=== PATIENT | female | born 1980 | race Caucasian/White ===

== ENCOUNTER 2019-09-12 10:30 | Outpatient (CLI) | payer MEDICAID, SELFPAY ==
[~2019-09-12 10:30] MED LIST: ALBU-136 IH; LEVO0.124 PO
== END 2019-09-12 17:15 | disposition home or self-care (01) ==
LOC: MLB 10:30
PROVIDERS: ATTEND Obstetrics & Gynecology
DX: Z11.59 Encounter for screening for other viral diseases (principal)
CPT/HCPCS: U0003-CS

== ENCOUNTER 2019-09-19 05:06 | Inpatient (IN) | payer MEDICAID, SELFPAY ==
[~2019-09-19] VITALS: Ht 149.9 cm; Wt 56.2 kg
[2019-09-19] MEDS ORDERED: LACTATED RINGERS 1,000 ML IV SCH (05:45)
[2019-09-19 06:23] VITALS: BP 117/70
[2019-09-19] MEDS ORDERED: CITRIC ACID/SODIUM CITRATE 30 ML UDC PO SCH (06:30)
[2019-09-19 06:39] LABS: BASOPHILS % (AUTO) 0.5 % (0.0-2.0); EOSINOPHILS # (AUTO) 0.1 K/uL (0-0.4); EOSINOPHILS % (AUTO) 1.3 % (0.0-4.0); HEMATOCRIT 40.6 % (36-48); HEMOGLOBIN 13.8 g/dL (12.0-16.0); LYMPHOCYTES # (AUTO) 1.1 K/uL (2.5-16.5); LYMPHOCYTES % (AUTO) 17.4 % (20.5-51.1); MEAN CORPUSCULAR HEMOGLOBIN 33 pg (27-31); MEAN CORPUSCULAR HGB CONC 34 g/dL (33-37); MEAN CORPUSCULAR VOLUME 97.1 fL (80-94); MONOCYTES # (AUTO) 0.4 K/uL (0.8-1.0); MONOCYTES % (AUTO) 6.4 % (1.7-9.3); NEUTROPHILS # (AUTO) 4.8 K/uL (1.8-7.7); NEUTROPHILS % (AUTO) 74.4 % (42.2-75.2); PLATELET COUNT (AUTO) 140 K/uL (140-450); RED BLOOD CELL COUNT(AUTO) 4.18 MIL/uL (4.20-5.40); RED CELL DISTRIBUTION WIDTH 14.4 % (11.6-13.7); WHITE BLOOD COUNT (AUTO) 6.4 K/uL (4.8-10.8)
[2019-09-19 06:39] LABS: APPEARANCE,URINE CLEAR (CLEAR); BILIRUBIN,URINE NEGATIVE (NEGATIVE); BLOOD, URINE TRACE-I (NEGATIVE); COLOR,URINE YELLOW (YELLOW); LEUKOCYTE ESTERASE ,URINE NEGATIVE (NEGATIVE); NITRITE, URINE NEGATIVE (NEGATIVE); UGLUCOSE NEGATIVE (NEGATIVE)
[2019-09-19] MEDS ORDERED: OXYTOCIN 10 UNITS/ML VIAL ONE (07:27)
[2019-09-19] MEDS ORDERED: ONDANSETRON 4 MG/2 ML VIAL ONE (07:27)
[2019-09-19 07:29] LABS: ALBUMIN 2.6 g/dL (3.4-5.0); ANION GAP 17.6 (8-16); CARBON DIOXIDE 21.2 mmol/L (21-32); CREATININE 0.7 mg/dL (0.6-1.3); POTASSIUM 3.8 mmol/L (3.5-5.1); TOTAL BILIRUBIN 0.4 mg/dL (0.0-1.0)
[2019-09-19] MEDS ORDERED: MORPHINE PRES FREE 10 MG/10 ML AMP IV ONE (07:30)
[2019-09-19] MEDS ORDERED: oxyCODONE/APAP 5/325 MG 1 TAB TAB PO PRN (07:35)
[2019-09-19] MEDS ORDERED: OXYTOCIN 20 UNITS in LACTATED RINGERS 1,000 ML IV SCH ×2 (07:35→07:49)
[2019-09-19] MEDS ORDERED: METHYLERGONOVINE 0.2 MG/ML AMP IM PRN (07:35)
[2019-09-19] MEDS ORDERED: MEASLES, MUMPS, AND RUBELLA 1 VIAL SQVAC PRN (07:35)
[2019-09-19] MEDS ORDERED: diphenhydrAMINE 50 MG/ML VIAL IVP PRN (07:50)
[2019-09-19] MEDS ORDERED: KETOROLAC 30 MG/ML VIAL IVP PRN (07:50)
[2019-09-19] MEDS ORDERED: NALOXONE 0.4 MG/ML VIAL IVP PRN (07:50)
[2019-09-19] MEDS ORDERED: ONDANSETRON 4 MG/2 ML VIAL IVP PRN (07:50)
[2019-09-19] MEDS ORDERED: bisacodyL 10 MG SUPP RC SCH (09:00)
--- NOTE | 2019-09-19 09:55 | NUR ---
PATIENT HAS BEEN SCREENED AND CATEGORIZED LOW NUTRITION RISK. PATIENT WILL BE SEEN WITHIN 7 DAYS OF ADMISSION. 09/25/[address]
[2019-09-20] MEDS ORDERED: OXYTOCIN 20 UNITS/LR PREMIX 1,000 ML IV ONE (03:21)
[2019-09-20 06:47] LABS: BASOPHILS % (AUTO) 0.5 % (0.0-2.0); EOSINOPHILS % (AUTO) 0.3 % (0.0-4.0); HEMATOCRIT 37.8 % (36-48); HEMOGLOBIN 12.6 g/dL (12.0-16.0); LYMPHOCYTES # (AUTO) 0.8 K/uL (2.5-16.5); LYMPHOCYTES % (AUTO) 9.8 % (20.5-51.1); MEAN CORPUSCULAR HEMOGLOBIN 33 pg (27-31); MEAN CORPUSCULAR HGB CONC 33 g/dL (33-37); MEAN CORPUSCULAR VOLUME 97.9 fL (80-94); MONOCYTES # (AUTO) 0.5 K/uL (0.8-1.0); MONOCYTES % (AUTO) 6.3 % (1.7-9.3); NEUTROPHILS # (AUTO) 6.7 K/uL (1.8-7.7); NEUTROPHILS % (AUTO) 83.1 % (42.2-75.2); PLATELET COUNT (AUTO) 125 K/uL (140-450); RED BLOOD CELL COUNT(AUTO) 3.86 MIL/uL (4.20-5.40); RED CELL DISTRIBUTION WIDTH 14.4 % (11.6-13.7)
[2019-09-20] MEDS ORDERED: oxyCODONE/APAP 5/325 MG 1 TAB TAB PO PRN (11:50)
[2019-09-20] MEDS ORDERED: HYDROcodone/APAP 5/325 MG 1 TAB TAB PO PRN (11:50)
[2019-09-20] MEDS: SIMETHICONE 80 MG TAB.CHEW PO PRN ×2 (13:18→22:49)
[2019-09-20] MEDS: IBUPROFEN 600 MG TAB PO PRN (16:19)
[2019-09-20] MEDS ORDERED: CAMERA MC ONE (22:43)
[2019-09-21] MEDS: SIMETHICONE 80 MG TAB.CHEW PO PRN (08:45)
[2019-09-21] MEDS: IBUPROFEN 600 MG TAB PO PRN (09:49)
== END 2019-09-21 15:30 | disposition home or self-care (01) | DRG 540 ==
LOC: MLD 05:06 → MFCC 09:04
PROVIDERS: ADMIT Obstetrics & Gynecology; ATTEND Obstetrics & Gynecology
PROC: 10D00Z1 Extraction of Products of Conception, Low, Open Approach (ICD-10-PCS; principal; 2019-09-19)
DX: O34.211 Maternal care for low transverse scar from previous cesarean delivery (principal); Z37.0 Single live birth; Z3A.39 39 weeks gestation of pregnancy
CPT/HCPCS: 36415; 80053; 81003; 85025; 86592; 86886; 86900; 86901; 87081; 90715; J0690; J2270; J2405; J2590; J7060; J7120

== ENCOUNTER 2022-05-23 17:36 | Emergency (ER) | payer MEDICAID, OTHER ==
[~2022-05-23] VITALS: Ht 144.8 cm; Wt 54.4 kg
[~2022-05-23 17:36] MED LIST changes: -ALBU-136 IH
[2022-05-23 18:14] VITALS: BP 126/71
[2022-05-23] MEDS ORDERED: KETOROLAC 30 MG/ML VIAL IM ONE (18:30)
[2022-05-23 19:05] LABS: BASOPHILS % (AUTO) 0.4 % (0.0-2.0); EOSINOPHILS # (AUTO) 0.1 K/uL (0-0.4); EOSINOPHILS % (AUTO) 0.9 % (0.0-4.0); HEMATOCRIT 38.3 % (36-48); LYMPHOCYTES # (AUTO) 1.3 K/uL (2.5-16.5); MEAN CORPUSCULAR HEMOGLOBIN 30 pg (27-31); MEAN CORPUSCULAR HGB CONC 34 g/dL (33-37); MONOCYTES # (AUTO) 0.4 K/uL (0.8-1.0); MONOCYTES % (AUTO) 5.2 % (1.7-9.3); NEUTROPHILS # (AUTO) 6.7 K/uL (1.8-7.7); NEUTROPHILS % (AUTO) 78.5 % (42.2-75.2); PLATELET COUNT (AUTO) 229 K/uL (140-450); RED CELL DISTRIBUTION WIDTH 14.8 % (11.6-13.7); WHITE BLOOD COUNT (AUTO) 8.5 K/uL (4.8-10.8)
[2022-05-23 19:16] LABS: APPEARANCE,URINE CLEAR (CLEAR); BILIRUBIN,URINE NEGATIVE (NEGATIVE); BLOOD, URINE NEGATIVE (NEGATIVE); COLOR,URINE YELLOW (YELLOW); LEUKOCYTE ESTERASE ,URINE NEGATIVE (NEGATIVE); NITRITE, URINE NEGATIVE (NEGATIVE); UGLUCOSE NEGATIVE (NEGATIVE)
[2022-05-23 19:27] LABS: ANION GAP 11.3 (8-16); ASPARTATE AMINOTRANSFERASE 39 U/L (15-37); CARBON DIOXIDE 32.2 mmol/L (21-32); CHLORIDE 99 mmol/L (98-107); CREATININE 0.7 mg/dL (0.6-1.3); GFR ARICAN-AMERICAN 119 mL/min (>90); GLUCOSE 121 mg/dL (74-106); LIPASE 171 U/L (73-393); POTASSIUM 3.5 mmol/L (3.5-5.1); SODIUM SERUM 139 mmol/L (136-145); TOTAL BILIRUBIN 0.5 mg/dL (0.0-1.0); UREA NITROGEN, BLOOD 7 mg/dL (7-18)
[2022-05-23] MEDS ORDERED: FAMO-90 PO (20:09)
[2022-05-23] MEDS ORDERED: ACET-10509 PO (20:09)
[2022-05-23 20:23] VITALS: BP 126/71
--- NOTE | 2022-05-23 20:23 | NUR ---
Patient discharged. Written and verbal after care instructions given and explained. Patient alert, oriented and verbalized understanding of instructions. Ambulatory with steady gait. All questions addressed prior to discharge. ID band removed. Patient advised to follow up with PMD. Rx of Acetaminophen tab and pepcid given. Patient educated on indication of medication including possible reaction and side effects. Opportunity to ask questions provided and answered.
== END 2022-05-23 20:23 | disposition home or self-care (01) ==
LOC: MED 17:36
DX: R07.89 Other chest pain (principal); R10.13 Epigastric pain; J45.909 Unspecified asthma, uncomplicated; E03.9 Hypothyroidism, unspecified; Z79.899 Other long term (current) drug therapy
CPT/HCPCS: 36415; 71045; 80053; 81003; 81025; 83690; 84484; 85025; 93005; 96372; 99285; J1885